=== PATIENT | female | born 1970 | race Caucasian/White ===

== ENCOUNTER → 2021-06-27 08:40 | Outpatient (CLI) | payer OTHER, SELFPAY ==
--- NOTE | ~2021-06-27 | MR_ITS ---
. EXAMINATION: MR ankle LT wo con DATE: 06/27/2021 09:23 INDICATION: Sprain of unspecified ligament of left ankle. Left ankle pain. TECHNIQUE: Magnetic resonance imaging (MRI) of the left ankle was performed without intravenous contr ast. Sequences included sagittal PD-weighted FS FSE, sagittal PD-weighted FSE, coronal PD-weighted FS FSE, coronal PD-weighted FSE, axial PD-weighted FS FSE, and axial PD-weighted FSE. COMPARISON: None. FINDINGS: Medial ankle ligaments: The superficial and deep components of the deltoid ligament are normal. Lateral ankle ligaments: There are changes of prior sprains of anterior talofibular ligament and calcaneofibular ligament zuly acterized by increased signal intensity. Posterior talofibular ligament is normal. The anterior and p osterior tibiofibular ligaments are intact. Tendons: There is mild peroneus longus and brevis tendinopathy. The anterior and medial ankle tendons are norm al. Achilles tendon is normal. Plantar fascia: Normal. Bones/other: Bone alignment is normal. There is a nondisplaced trabecular fracture of head of talus characterized by low signal fracture line with surrounding edema. There is edema-like marrow signal intensity invol ving anterolateral calcaneus and distal cuboid, likely stress reaction. There is mild osteoarthritis of talonavicular joint. Fluid: There is no joint effusion. IMPRESSION: 1. Nondisplaced trabecular fracture of head of talus. 2. Changes of lateral ankle sprain. Reviewed, dictated and finalized at location A. [employer]
== END ==
PROVIDERS: PCP Nurse Practitioner Family; Visit Provider Podiatrist Foot & Ankle Surgery
DX: S93.402A Sprain of unspecified ligament of left ankle, initial encounter (principal); S92.125A Nondisplaced fracture of body of left talus, initial encounter for closed fracture
CPT/HCPCS: 73721

== ENCOUNTER 2023-04-14 07:00 | Outpatient (NON) | payer OTHER, SELFPAY | END 2023-04-14 07:01 | disposition home or self-care (01) | LOC: ANHLAB 04-16 12:57 | PROVIDERS: PCP Nurse Practitioner Family; Visit Provider Nurse Practitioner | DX: D23.5 Other benign neoplasm of skin of trunk (principal) | CPT/HCPCS: 88305 ==

== ENCOUNTER 2024-06-29 10:39 | Emergency (ER) | payer OTHER, SELFPAY ==
--- NOTE | ~2024-06-29 | XR_ITS ---
XR chest 2V Ordering provider: Kim Shipley III, DO History: 53 years Female with . cp . Comparison: January 07, 2018 FINDINGS: MEDIASTINUM: The cardiac silhouette is not enlarged. LUNGS: No infiltrates, effusions or pneumothorax. OTHER: No free air under the diaphragm. IMPRESSION: No acute cardiopulmonary pathology. Reviewed, dictated and finalized at location A. CUTTER
--- NOTE | ~2024-06-29 | CT_ITS ---
EXAMINATION: CT brain wo con DATE: 06/29/2024 12:41 INDICATION: Numbness TECHNIQUE: Computed tomography (CT) of the head was performed without intravenous contrast. Sagittal and coronal reconstructions were performed. The mA was adjusted according to patient size. Iterative reconstruction technique was employed. The dose-length product was 605.33 mGy-cm. COMPARISON: None FINDINGS: No acute intracranial hemorrhage, acute infarction or abnormal extra axial fluid collection. Ventricl es are normal and symmetric. No mass/mass effect. The orbits, paranasal sinuses and mastoid air cells are normal. IMPRESSION: 1. Normal head CT. Reviewed, dictated and finalized at location B. STERED NURSE HH CASE MANAGER IMPRESSION: 1. Normal head CT.
--- NOTE | ~2024-06-29 | CT_ITS ---
EXAMINATION: CTA brain carotid DATE: 06/29/2024 15:33 INDICATION: Left arm numbness. TECHNIQUE: Computed tomographic angiography (CTA) of the head was performed with 100 mL Omnipaque-350 intravenous contrast. CTA of the neck was performed with intravenous contrast. Automated exposure co ntrol and iterative reconstruction technique were employed. The dose-length product was 937.22 mGy-cm . Maximum intensity projection and volume rendered 3D-reconstructions were created by the [employer] t on a separate workstation. COMPARISON: Head CT 06/29/2024 FINDINGS: HEAD CTA: There is no intracranial hemorrhage, acute infarction, or abnormal intracranial mass lesion . The ventricles are normal in size. There is mild mucosal thickening in the paranasal sinuses. The o rbits are normal. The mastoid air cells are normal. The vertebral arteries are codominant. There is n o significant stenosis of basilar artery or the posterior cerebral arteries. There is no significant stenosis of the intracranial internal carotid arteries or anterior or middle cerebral arteries. Anter ior communicating artery is normal. The posterior communicating arteries are normal. There is no aneu rysm. NECK CTA: There are no pathologically enlarged lymph nodes. There is no significant stenosis of the v ertebral arteries. There is minimal plaque in the proximal internal carotid arteries. There is 0% terry nosis of the proximal right internal carotid artery relative to normal distal artery lumen diameter ( NASCET criteria). There is 0% stenosis of the proximal left internal carotid artery relative to ashleigh l distal artery lumen diameter. There is moderate cervical spondylosis. IMPRESSION: 1. Normal brain. 2. No aneurysm or significant intracranial arterial stenosis. 3. 0% stenosis of the proximal internal carotid arteries relative to normal distal artery lumen diame ters (NASCET criteria). Reviewed, dictated and finalized at location A. BATTER MIXER IMPRESSION: 1. Normal brain. 2. No aneurysm or significant intracranial arterial stenosis. 3. 0% stenosis of the proximal internal carotid arteries relative to normal dis marty artery lumen diameters (NASCET criteria).
[2024-06-29 10:40] VITALS: BP 136/76; PULSE 79; RESP 18; TEMP 36.8; O2SAT 100
--- NOTE | 2024-06-29 10:44 | ECG_ITS ---
Test Date: 2024-06-29 10:48:43 Measurements Intervals [place] Rate: 77 P: -3 [place]: 160 QRS: -9 QRSD: 93 T: -1 QT: 390 QTc: 442 Interpretive Statements SINUS RHYTHM LOW QRS VOLTAGE IN PRECORDIAL LEADS [QRS DEFLECTION < 1.0 mV IN CHEST LEADS] No previous ECG available for comparison Electronically Signed On 06-30-2024 10:56:57 TECHNICAL SUPPORT MANAGER by Alexsander Muhammad M.D.
--- NOTE | 2024-06-29 10:54 | ED.CHESTPAIN ---
HPI - Chest Pain General Chief Complaint: Chest Pain Stated Complaint: cp Time Seen by Provider: 06/29/24 10:44 History of Present Illness HPI narrative: Pt presents with CP in jaw and chest and left arm and then to right arm. Pt has no CAD hx. Pt also takes statin for cholesterol. Pt has some numbness in fingers also. Related Data Allergies Allergy/AdvReac Type Severity Reaction Status Date / Time aspirin Allergy Unknown Verified 07/01/13 14:26 SALICYLATES Allergy Unknown RECTAL Uncoded 05/23/18 16:30 BLEEDING PMFSH Social History Social History Alcohol intake: current Course Vital Signs Vital signs: Vital Signs Temperature 98.3 F 06/29/24 10:40 Pulse Rate 79 06/29/24 10:40 Respiratory Rate 18 06/29/24 10:40 Blood Pressure 136/76 06/29/24 10:40 Pulse Oximetry 100 06/29/24 10:40 Oxygen Delivery Room Air 06/29/24 10:40 Temperature 98.3 F 06/29/24 10:40 Pulse Rate 79 06/29/24 12:22 Respiratory Rate 18 06/29/24 12:22 Blood Pressure 114/78 06/29/24 12:22 Pulse Oximetry 96 06/29/24 12:22 Oxygen Delivery Room Air 06/29/24 11:08 MDM - Chest Pain MDM Narrative Medical decision making narrative: Pt presents with jaw and shoulder pain and numbness in left arm but no weakness. Will start with cardiac work up to rule out ACS and will get CT of head. EKG and trop x 2 neg and labs unremarkable. Pt concerned about left arm so will get CTA head and neck. CTA also unremarkable. will send home on flexeril and naprosyn for musculoskeltal etiology. Lab Data 06/29/24 10:52 06/29/24 10:52 Labs: Lab Results 06/29/24 06/29/24 Range/Units 10:52 14:02 WBC 5.9 (4.5-10.0) K/mm3 RBC 4.17 L (4.2-5.4) M/mm3 Hgb 12.6 (12.0-15.0) g/dL Hct 37.1 (37.0-47.0) % MCV 89.0 (80-100) fl MCH 30.2 (26-34) pg MCHC 34.0 (32-36) g/dl RDW 12.2 (11.5-14.5) % Plt Count 287 (150-375) k/mm3 MPV 9.3 (7.4-10.4) fl Immature Gran % (Auto) 0.3 (0-0.5) % Neut % (Auto) 52.2 (45.5-73.1) % Lymph % (Auto) 35.7 (18.3-44.2) % [place] % (Auto) 7.9 (2.6-8.5) % Eos % (Auto) 2.7 (0-4.4) % Baso % (Auto) 1.2 (0.2-1.2) % Lymph # (Auto) 2.12 (0.9-3.2) K/mm3 [place] # (Auto) 0.5 (0.1-0.6) K/mm3 Eos # (Auto) 0.2 (0-0.3) K/mm3 Baso # (Auto) 0.1 (0.0-0.1) K/mm3 Abs Immat Gran (auto) 0.02 (0.00-0.031) K/mm3 Absolute Neuts (auto) 3.1 (1.3-6.7) K/mm3 Absolute Nucleated RBC 0.000 (0.0-0.012) K/mm3 Nucleated RBC % 0.0 (0.0-0.2) % PT 13.1 (11.1-14.7) Seconds INR 1.0 APTT 30.6 (22.3-36.8) Seconds Sodium 141 (137-145) mmol/L Potassium 4.2 (3.4-5.0) mmol/L Chloride 105 (98-107) mmol/L Carbon Dioxide 25 (22-30) mmol/L Anion Gap 11 (4-12) mmol/L BUN 15 (7-17) mg/dL Creatinine 0.67 L (0.7-1.0) mg/dL Estim Creat Clear Calc 92 ml/min Estimated GFR > 60 (59 - ) Glucose 103 (65-110) mg/dL Calcium 9.6 (8.4-10.2) mg/dL Total Bilirubin 0.4 (0.2-1.3) mg/dL AST 20 (14-36) U/L ALT 19 (6-35) U/L Alkaline Phosphatase 107 (38-126) U/L Troponin I < 0.012 < 0.012 (0.000-0.034) ng/mL Total Protein 8.0 (6.3-8.2) g/dL Albumin 4.8 (3.5-5.1) g/dL Lipase 143 (23-300) U/L Discharge Plan Discharge Clinical Impression: Atypical chest pain Patient Disposition: Home, Self-Care Condition: Stable Instructions: Antibiotic Form, Cervical Radiculopathy (ED) Patient Language: Georgian Prescriptions: New cyclobenzaprine 10 mg tablet 10 mg PO TID Qty: 14 0RF Follow-up/Referrals: David,Jazz Bonilla APRN [Non-Staff] -
[2024-06-29 10:58] LABS: Basophils Absolute Auto 0.1 K/mm3 (0.0-0.1); Basophils Percent Auto 1.2 % (0.2-1.2); Eosinophils Absolute Auto 0.2 K/mm3 (0-0.3); Eosinophils Percent Auto 2.7 % (0-4.4); Hematocrit 37.1 % (37.0-47.0); Hemoglobin 12.6 g/dL (12.0-15.0); Immature Granulocyte Absolute 0.02 K/mm3 (0.00-0.031); Immature Granulocyte Percent A 0.3 % (0-0.5); Lymphocytes Absolute Auto 2.12 K/mm3 (0.9-3.2); Lymphocytes Percent Auto 35.7 % (18.3-44.2); Mean Corpuscular Hemoglobin 30.2 pg (26-34); Mean Platelet Volume 9.3 fl (7.4-10.4); Monocytes Absolute Auto 0.5 K/mm3 (0.1-0.6); Monocytes Percent Auto 7.9 % (2.6-8.5); Neutrophils Absolute Auto 3.1 K/mm3 (1.3-6.7); Neutrophils Percent Auto 52.2 % (45.5-73.1); Platelet Count Result 287 k/mm3 (150-375); Red Blood Count 4.17 M/mm3 (4.2-5.4); Red Cell Distribution Width 12.2 % (11.5-14.5); White Blood Count 5.9 K/mm3 (4.5-10.0)
[2024-06-29 11:09] LABS: Prothrombin Time 13.1 Seconds (11.1-14.7)
[2024-06-29 11:10] LABS: Partial Thromboplastin Time 30.6 Seconds (22.3-36.8)
[2024-06-29 11:11] VITALS: BP 124/81; PULSE 81; RESP 16; O2SAT 100
[2024-06-29 11:19] LABS: Alanine Aminotransferase 19 U/L (6-35); Albumin Level 4.8 g/dL (3.5-5.1); Alkaline Phosphatase 107 U/L (38-126); Anion Gap 11 mmol/L (4-12); Aspartate Amino Transferase 20 U/L (14-36); Bilirubin,Total 0.4 mg/dL (0.2-1.3); Blood Urea Nitrogen 15 mg/dL (7-17); Calcium 9.6 mg/dL (8.4-10.2); Carbon Dioxide 25 mmol/L (22-30); Chloride 105 mmol/L (98-107); Estimated CRCL calculation 92 ml/min; Estimated Glomerular Filt Rate > 60; Glucose 103 mg/dL (65-110); Lipase 143 U/L (23-300); Potassium 4.2 mmol/L (3.4-5.0); Sodium 141 mmol/L (137-145)
[2024-06-29 11:30] LABS: Troponin I < 0.012 ng/mL (0.000-0.034)
[2024-06-29 12:22] VITALS: BP 114/78; PULSE 79; RESP 18; O2SAT 96
--- OUTSIDE RECORDS SUMMARY | 2024-06-29 12:54 | XMS_ITS | Referral Summary ---
Author Organization [facility] Address [address] [place] [address] Care Team Providers Care Hadoop Architect Name Role Phone Jazz Hernandez NP Primary Care Provider [phone] [phone] Allergies Active Allergy Reactions Criticality Noted Date Comments Aspirin Other (See comments) Low 05/03/2012 Pt states Hemorrhaging Medications ipratropium (ATROVENT HFA) 17 mcg/actuation inhaler Inhale 2 puffs 4 (four) times a day as needed for wheezing or shortness of breath 1 each 11 1 Active Additional Information Patient not taking.Reported on 12/26/2021 Breo Ellipta 200-25 mcg/dose diskus inhaler INHALE 1 PUFF ONCE DAILY - RINSE MOUTH AFTER USE 60 each 3 2 Active Additional Information Patient not taking.Reported on 12/26/2021 phentermine 15 mg capsule Take 15 mg by mouth daily 2 Active fluticasone propionate (FLONASE) 50 mcg/actuation nasal spray Administer 1 spray into affected nostril(s) daily 2 Active Lacto.acidophil us-Bif.animalis 32 billion cell capsule Take 1 capsule by mouth Active cyclobenzaprine (FLEXERIL) 5 mg tablet Take 5 mg by mouth 3 (three) times a day as needed 2 Active phentermine 37.5 mg capsule TAKE 1 CAPSULE BY MOUTH BEFORE OR 1-2 HOURS AFTER BREAKFAST DAILY 2 Active lidocaine jelly (XYLOCAINE) 2 % Apply topically 2 (two) times a day as needed 2 Active Active Problems Problem Noted Date Diagnosed Date Obstructive sleep apnea 02/15/2020 Dyspnea Social History Tobacco Use Types Packs/Day Years Used Date Smoking Tobacco: Former Cigarettes Q uit: 12/2003 Smokeless Tobacco: Never AUDIT-C Answer Date Recorded Q1: How often do you have a drink containing alc ohol? Monthly or less 03/06/2021 Q2: How many drinks containi ng alcohol do you have on a typical day when you are drinking? 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 Sexual Orientation Not on file Last Filed Vital Signs Vital Sign Reading Time Taken Comments Blood Pressure 123/79 12/26/2021 8:16 AM CDT Pulse 83 12/26/2021 8:16 AM CDT Temperature 36.4 C (97.5 F) 12/26/2021 8:16 AM CDT Respiratory Rate 18 12/26/2021 8:16 AM CDT Oxygen Saturation 99% 12/26/2021 8:16 AM CDT Inhaled Oxygen Concentration - - Weight 74.4 kg (164 lb 0.4 oz) 12/26/2021 8:16 A M CDT Height 160.8 cm (5' 3.3 ) 12/26/2021 8:16 AM CDT Body Mass Index 28.78 12/26/2021 8:16 AM CDT Plan of Treatment Not on file Insurance [facility] CHOICE PLUS [facility] CHOICE PLUS [place] [id number] Care Teams Hadoop Architect Relationship Special[place] [address] [address] [address] PCP - General Nurse Practitioner 11/06/20
--- OUTSIDE RECORDS SUMMARY | 2024-06-29 12:54 | XMS_ITS | Clinical Summary ---
Author Organization [facility] Address [address] [place] [address] Care Team Providers Care Voice Teacher Name Role Phone Jazz Hernandez NP Primary Care Provider [phone] [phone] Allergies Active Allergy Reactions Criticality Noted Date [...] 2 (two) times a day as needed Active Active Problems Problem Noted Date Diagnosed Date Obstructive sleep apnea 02/15/2020 Dyspnea Surgical History Surgery Date Site/Laterality Comments BREAST SURGERY 04/28/2013 - 04/27/2014 reduction HYSTERECTOMY 04/28/2002 - 04/27/2003 Partial OOPHORECTOMY 04/28/2003 - 04/27/2004 Medical History Medical History Date Comments Asthma Allergic rhinitis Sinusitis Recurrent upper respiratory infection (URI) Family History Medical History Relation Name Comments Cancer Mother Emphysema Mother Heart disease Mother Lung disease Mother Lung Cancer Stroke Mother Relation Name Status Comments Father Alive Unknown Medical History Mother Social History Tobacco Use Types Packs/Day Years [...] CDT Gender Identity Female 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 Sexual Orientation Not on file Obstetrics History Last Filed Vital Signs Vital Sign Reading [...] 12/26/2021 8:16 AM CDT Plan of Treatment Health Maintenance Due Date Last Done Comments Colon Cancer Screening-Colonoscopy 1971 Depression Screening 1971 Hepatitis C Screening 1971 DTaP/Tdap/Td Vaccine (1 - Tdap) 10/05/1982 Hepatitis B Screening 10/05/1989 Regular Well Visit/Exam 18-64 10/05/1989 Pneumococcal vaccine <65 (1 of 2 - PCV) 10/05/1990 Zoster Vaccine (1 of 2) 10/05/2021 Influenza Vaccine (#1) 2023 Breast Cancer Screening-Mammogram 08/31/2024 09/01/2023, 09/01/2023, 05/10/2022, Additional history exists Insurance [facility] CHOICE PLUS [facility] CHOICE PLUS Care Teams Voice Teacher Relationship Specialty [place] [address] [address] PCP - General Nurse Practitioner 11/06/20
--- OUTSIDE RECORDS SUMMARY | 2024-06-29 12:54 | XMS_ITS | Clinical Summary ---
Author Organization [facility] Address [address] [place] [address] Care Team Providers Care Blood Bank Laboratory Professional Name Role Phone Keshav Terrell MD Primary Care Provider [phone] [phone] [facility],non-owned Affiliates and Associated Physician Practices is amultiple site organization consisting of ambulatory clinics and hospital sitesin [place], [place], [place] and [place]. This disclosure is being madepursuant to the Care Everywhere program and may not contain all information available regarding this patient. Last updated 18.[facility] [employer] Active Problems Problem Noted Date Diagnosed Date Foot pain, right 06/03/2018 Social History Tobacco Use Types Packs/Day Years Used Date Smoking Tobacco: Never Assessed Sex and Gender Information Value Date Recorded Sex Assigned at Not on file Gender Identity Not on file Sexual Orientation Not on file Plan of Treatment Health Maintenance Due Date Last Done Comments COLOGUARD (AGES 45-75) - COL ON CA SCREENING 1971 COLON MONITORING 1971 COLONOSCOPY - COLON CA SCREENING 1971 CT COLONOGRAPHY - COLON CA SCREENING 1971 Colorectal Cancer Screening 1971 FIT - COLON CA SCREENING 1971 FLEX SIG - COLON CA SCREENING 1971 LIPID TESTING 1971 MAMMOGRAM 1971 PAP SMEAR 1971 HIV SCREENING 10/05/1986 HEPATITIS C SCREENING 10/01/1989 DTAP/TDAP/TD VACCINES (1 - Tdap) 10/05/1990 HEPATITIS B VACCINE (1 of 3 - 19+ 3-dose series) 10/05/1990 PNEUMOCOCCAL VACCINE 50+ (1 of 1 - PCV) 10/05/2021 ZOSTER VACCINE (1 of 2) 10/05/2021 COVID-19 VACCINE (1 - 2023-2 5 season) 2023 INFLUENZA VACCINE (#1) 2023 DEPRESSION SCREENING 04/28/2024 HIB VACCINE Aged Out No longer eligi ble based on patient's age to complete this topic HPV VACCINE Aged Out No longer eligi ble based on patient's age to complete this topic MENINGOCOCCAL (Group B) VACCINE Aged Out No longer eligible based on patient's age to complete this topic MENINGOCOCCAL VACCINE Aged Out No kamran ada eligible based on patient's age to complete this topic PNEUMOCOCCAL VACCINE Aged Out No long er eligible based on patient's age to complete this topic Care Teams Blood Bank Laboratory Professional Relationship Specialty Start Date End Date Keshav Terrell MD [address] [place] [address] (work) PCP - General 05/25/18
--- OUTSIDE RECORDS SUMMARY | 2024-06-29 12:54 | XMS_ITS | Patient Health Summary ---
Author Organization [facility] Address [address] [place] [address] Care Team Providers Care Patient Accounting Representative Name Role Phone Keshav Terrell MD Primary Care Provider [phone] [phone] Note from [facility],non-owned Affiliates and Associated Physician Practices is amultiple site organization consisting of ambulatory clinics and hospital sitesin [place], [place], [place] and [place]. This disclosure is being madepursuant to the Care Everywhere program and may not contain all information available regarding this patient. Last updated 18.[facility] Active Problems Problem Noted Date Diagnosed Date Foot pain, right 06/03/2018 Social History Tobacco Use Types Packs/Day Years Used Date Smoking Tobacco: Never Assessed Sex and Gender Information Value Date Recorded Sex Assigned at Not on file Gender Identity Not on file Sexual Orientation Not on file Procedures * XR FOOT RIGHT 3VW OR MORE(Performed 06/03/2018) Performed for Foot pain, right * XR ANKLE RIGHT 3VW OR MORE(Performed 06/03/2018) Performed for Arthralgia of right ankle Results * XR FOOT RIGHT 3VW OR MORE (06/03/2018 8:35 AM CORROSION CONTROL SPECIALIST) Anatomical Region Laterality Modality Ankle / Foot Radiographic Yoselin ging 06/03/2018 8:30 AM CORROSION CONTROL SPECIALIST Impressions 06/03/2018 8:50 AM CORROSION CONTROL SPECIALIST IMPRESSION: No acute osseous abnormality of the right foot or right ankle. Dictated by Leonard Person MD (residential living assistant). IDr. ROHIT MD have personally reviewed and interpreted this examination/study. This report was electronically signed by ROHIT DUNCAN MD on 06/03/2018 8:50 AM . Narrative 06/03/2018 8:50 AM CORROSION CONTROL SPECIALIST EXAMINATION: XR ANKLE RIGHT 3VW OR MORE, XR FOOT RIGHT 3VW OR MORE HISTORY: Right Ankle Pain COMPARISON: No prior study is available for comparison. FINDINGS: Right ankle: No acute fracture or dislocation is identified. The joint spaces are maintained. No soft tissue abnormalities are seen. The bone mineralization is normal. Right foot: No acute fracture or dislocation is identified. The joint spaces are maintained. No soft tissue nodules are seen. Bone mineralization is normal. Procedure Note Rohit Duncan MD - 06/03/2018 EXAMINATION: XR ANKLE RIGHT 3VW OR MORE, XR FOOT RIGHT 3VW OR MORE HISTORY: Right Ankle Pain COMPARISON: No prior study is available for comparison. FINDINGS: Right ankle: No acute fracture or dislocation is identified. The joint spaces are maintained. No soft tissue abnormalities are seen. The bonemineralization is normal. Right foot: No acute fracture or dislocation is identified. The joint spaces are maintained. No soft tissue nodules are seen. Bone mineralization is normal. IMPRESSION: No acute osseous abnormality of the right foot or right ankle. Dictated by Leonard Person MD (residential living assistant). Dr. ROHIT No MD have personally reviewed and interpreted this examination/study. This report was electronically signed by ROHIT DUNCAN MD on06/03/2018 8:50 AM . Arnel Ibanez MD DIAGNOSTIC IMAGING O RDERABLES * XR ANKLE RIGHT 3VW OR MORE (06/03/2018 8:29 AM CORROSION CONTROL SPECIALIST) Anatomical Region Laterality Modality Lower Extremity Radiographic Yoselin ging 06/03/2018 8:30 AM CORROSION CONTROL SPECIALIST Impressions 06/03/2018 8:50 AM CORROSION CONTROL SPECIALIST IMPRESSION: No acute osseous abnormality of the right foot or right ankle. Dictated by Leonard Person MD (residential living assistant). Dr. ROHIT No MD have personally reviewed and interpreted this examination/study. This report was electronically signed by ROHIT DUNCAN MD on 06/03/2018 8:50 AM . Narrative 06/03/2018 8:50 AM CORROSION CONTROL SPECIALIST EXAMINATION: XR ANKLE RIGHT 3VW OR MORE, XR FOOT RIGHT 3VW OR MORE HISTORY: Right Ankle Pain COMPARISON: No prior study is available for comparison. FINDINGS: Right ankle: No acute fracture or dislocation is identified. The joint spaces are maintained. No soft tissue abnormalities are seen. The bone mineralization is normal. Right foot: No acute fracture or dislocation is identified. The joint spaces are maintained. No soft tissue nodules are seen. Bone mineralization is normal. Procedure Note Rohit Duncan MD - 06/03/2018 EXAMINATION: XR ANKLE RIGHT 3VW OR MORE, XR FOOT RIGHT 3VW OR MORE HISTORY: Right Ankle Pain COMPARISON: No prior study is available for comparison. FINDINGS: Right ankle: No acute fracture or dislocation is identified. The joint spaces are maintained. No soft tissue abnormalities are seen. The bonemineralization is normal. Right foot: No acute fracture or dislocation is identified. The joint spaces are maintained. No soft tissue nodules are seen. Bone mineralization is normal. IMPRESSION: No acute osseous abnormality of the right foot or right ankle. Dictated by Leonard Person MD (residential living assistant). I, Dr. ROHIT DUNCAN MD have personally reviewed and interpreted this examination/study. This report was electronically signed by ROHIT DUNCAN MD on06/03/2018 8:50 AM . Arnel Ibanez MD DIAGNOSTIC IMAGING O [facility] Care Teams Patient Accounting Representative Relationship Specialty Start Date End Date Keshav Terrell MD [address] [place] [address] PCP - General 05/25/18
--- OUTSIDE RECORDS SUMMARY | 2024-06-29 12:54 | XMS_ITS | Referral Summary ---
Author Organization [facility] Address [address] [place] [address] Care Team Providers Care Automotive Parts Counter Associate Name Role Phone Keshav Terrell MD Primary Care Provider [phone] [phone] Source Comments [facility],non-owned Affiliates and Associated Physician Practices is amultiple site organization consisting of ambulatory clinics and hospital sitesin [place], [place], [place] and [place]. This disclosure is being madepursuant to the Care Everywhere program and may not contain all information available regarding this patient. Last updated 18.[facility] [employer] Active Problems Problem Noted Date Diagnosed Date Foot pain, right 06/03/2018 Social History Tobacco Use Types Packs/Day Years Used Date Smoking Tobacco: Never Assessed Sex and Gender Information Value Date Recorded Sex Assigned at Not on file Gender Identity Not on file Sexual Orientation Not on file Plan of Treatment Not on file Care Teams Automotive Parts Counter Associate Relationship Specialty Start Date End Date Keshav Terrell MD [address] [place] [address] PCP - General 05/25/18
--- NOTE | 2024-06-29 13:38 | ECG_ITS ---
Test Date: 2024-06-29 14:08:16 Measurements Intervals [place] Rate: 68 P: -10 IN: 152 QRS: -9 QRSD: 96 T: -7 QT: 404 QTc: 432 Interpretive Statements SINUS RHYTHM LOW QRS VOLTAGE IN PRECORDIAL LEADS [QRS DEFLECTION < 1.0 mV IN CHEST LEADS] Compared to ECG 06/29/2024 10:48:43 No significant changes Electronically Signed On 06-30-2024 11:11:22 COMPUTER ARTIST by Alexsander Muhammad M.D.
[2024-06-29 14:36] LABS: Troponin I < 0.012 ng/mL (0.000-0.034)
== END 2024-06-29 16:12 | disposition home or self-care (01) ==
PROVIDERS: Emergency Provider Emergency Medicine
DX: R07.89 Other chest pain (principal); E78.5 Hyperlipidemia, unspecified
CPT/HCPCS: 36415; 70450; 70496; 70498; 71046; 80053; 83690; 84484; 85025; 85610; 85730; 93005; 99284; Q9967

== ENCOUNTER 2024-07-21 07:07 | Outpatient (CLI) | payer OTHER, SELFPAY ==
--- NOTE | ~2024-07-21 | MR_ITS ---
EXAMINATION: MR cervical spine wo con DATE: 07/21/2024 08:03 INDICATION: Neck pain TECHNIQUE: Magnetic resonance imaging (MRI) of the cervical spine was performed without intravenous c ontrast. Sequences included sagittal T2-weighted FSE, sagittal fluid sensitive FSE STIR, sagittal T1- weighted FSE, axial MERGE and axial T2-weighted FSE. COMPARISON: None FINDINGS: Bone alignment is normal. Vertebral body heights are normal. Bone marrow signal intensity is normal . Mild disc height loss at C5-C6 and C6-C7. Cord signal intensity is normal. Cervical soft tissues ar e unremarkable. The following disc levels are specifically discussed: C2-C3: The disc does not extend beyond the endplate margin. There is no uncovertebral joint osteoarth ritis. There is severe bilateral facet joint osteoarthritis. There is no neural foraminal stenosis. T here is no central canal stenosis. C3-C4: The disc does not extend beyond the endplate margin. There is mild bilateral uncovertebral ofe nt osteoarthritis. There is severe bilateral facet joint osteoarthritis. There is mild bilateral neur al foraminal stenosis. There is no central canal stenosis. C4-C5: Disc is mildly bulging. There is mild bilateral uncovertebral joint osteoarthritis. There is m oderate left and severe right facet joint osteoarthritis. There is mild right and moderate left neura l foraminal stenosis. There is minimal central canal stenosis. C5-C6: Disc is bulging with annular fissure. There is old right and moderate left uncovertebral joint osteoarthritis. There is moderate bilateral facet joint osteoarthritis. There is mild right and mode rate left neural foraminal stenosis. There is mild central canal stenosis with mild flattening the ve ntral surface of the cord. C6-C7: Disc is mildly bulging with superimposed annular fissure and small central disc protrusion. Th ere is right and severe left uncovertebral joint osteoarthritis. There is mild right and moderate lef t facet joint osteoarthritis. There is mild right and mild to moderate left neural foraminal stenosis . There is mild central canal stenosis with mild flattening of the ventral surface of the cord. C7-T1: Annular fissure and small central disc protrusion. There is mild left uncovertebral joint oste oarthritis. There is moderate bilateral facet joint osteoarthritis. There is mild left neural foramin al stenosis. There is minimal central canal stenosis. IMPRESSION: 1. Mild lower cervical predominant spondylosis. Reviewed, dictated and finalized at location B.
--- NOTE | ~2024-07-21 | MR_ITS ---
EXAMINATION: MR brain/brain stem wo con DATE: 07/21/2024 07:53 INDICATION: Jaw pain. Neck pain. TECHNIQUE: Magnetic resonance imaging (MRI) of the brain and brainstem was performed without intraven ous contrast. COMPARISON: Head CT 06/29/2024 FINDINGS: There is metal artifact from the patient's mouth. There is no intracranial hemorrhage, acut e infarction, or abnormal intracranial mass lesion. The mastoid air cells are normal. The orbits are normal. The paranasal sinuses are clear. IMPRESSION: 1. Normal brain. Reviewed, dictated and finalized at location A. IMPRESSION: 1. Normal brain.
== END 2024-07-21 07:08 | disposition home or self-care (01) ==
PROVIDERS: PCP Internal Medicine; Visit Provider Internal Medicine
DX: M47.812 Spondylosis without myelopathy or radiculopathy, cervical region (principal); G58.9 Mononeuropathy, unspecified; R68.84 Jaw pain
CPT/HCPCS: 70551; 72141